=== PATIENT | female | born 1950 | race Caucasian/White ===

== ENCOUNTER 2019-10-26 17:21 | Inpatient (IN) ==
[2019-10-26 18:09] LABS: Basophils # (Auto) 0.05 K/mcL (0.00-0.30); Basophils % (Auto) 0.4 % (0.0-2.0); Eosinophils # (Auto) 0.06 K/mcL (0.00-0.70); Eosinophils % (Auto) 0.4 % (0.0-7.0); Granulocytes % (Auto) 77.3 % (38.0-78.0); Hematocrit 44.2 % (34.1-44.9); Hemoglobin 14.7 g/dL (11.2-15.7); Lymphocytes # (Auto) 1.96 K/mcL (1.50-4.80); Lymphocytes % (Auto) 14.1 % (15.5-49.0); Mean Cell Volume 81.9 fL (80.0-100.0); Mean Corpuscular HGB Conc 33.3 g/dL (31.0-36.0); Mean Platelet Volume 10.5 fL (7.4-10.4); Monocytes # (Auto) 1.09 K/mcL (0.10-0.90); Monocytes % (Auto) 7.8 % (1.0-12.0); Platelet Count 346 K/mcL (140-440); Red Cell Distribution Width 13.3 % (11.5-14.5); WBC 13.9 K/mcL (4.50-11.00)
--- NOTE | 2019-10-26 18:13 | XRay Report ---
INDICATION: SOB, weakness TECHNIQUE: AP portable semiupright chest x-ray COMPARISON: Chest x-rays dated 05/21/2019, 09/11/2018, 03/29/2018 FINDINGS: There is cardiomegaly. Pulmonary vascularity is prominent with upper lobe redistribution. Peribronchial thickening. There is bilateral, bibasilar infiltrates. The combination of findings is consistent with cardiomegaly and congestive heart failure. Bibasilar pneumonia is possible and clinical correlation is necessary. There are probable bilateral pleural effusions, right larger than left. IMPRESSION: 1. Cardiomegaly and probable congestive heart failure 2. Findings are new since 05/21/2019 Interpreted and Authenticated by: Farhat Dominguez 10/26/19
--- NOTE | 2019-10-26 18:31 | Emergency Department Note ---
Weakness HPI General Chief complaint: Weakness Stated complaint: weakness x1 week Time Seen by Provider: 10/26/19 18:04 Source: patient Mode of arrival: wheelchair Limitations: no limitations History of Present Illness HPI Narrative: This 69-year-old female comes in accompanied by her daughter. She has had about a week of worsening weakness as well as several weeks of some increasing weakness, upper respiratory symptoms including congestion in her nose that dropped into her chest. She took erythromycin she got from [facility] on 2 separate occasions but it seemed to exacerbate her joint and body aches, i.e., exacerbate fibromyalgia. She is felt weak in her legs this past week. No specific side. She is also had back discomforts. She does not normally use oxygen at home. She does have inhalers but has not been specifically advised that she has COPD that she recalls. She continues to smoke a pack per day. Reportedly has a lump or nodule that has not been followed up on or worked on, identified sometime in August. She is not been taking any diabetic medications because they all seem to give her side effects and exacerbate her pains. She does take chronic pain medications in the form of h ydrocodone 5 mg tablets. Related Data Home Medications Medication Instructions Recorded Confirmed aspirin 81 mg tablet,delayed 81 mg PO QDAY 12/07/18 10/26/19 release B Complex-Vitamin B12 1 tab PO QAM 10/26/19 10/26/19 Vitamin B-6 1 tab PO QAM 10/26/19 10/26/19 docusate sodium 100 mg PO QDAY PRN 10/26/19 10/26/19 hydrocodone-acetaminophen 1 tab PO QID 10/26/19 10/26/19 Previous Rx's Medication Instructions Recorded albuterol sulfate 90 mcg/actuation 2 puff INHALATION Q4H #36 g 10/22/19 aerosol inhaler Allergies Allergy/AdvReac Type Severity Reaction Status Date / Time cefixime [From Suprax] Allergy Unknown Unknown Verified 08/01/19 14:29 cefuroxime [From Ceftin] Allergy Unknown Unknown Verified 08/01/19 14:29 cephalexin [From Keflex] Allergy Unknown Unknown Verified 08/01/19 14:29 clarithromycin [From Biaxin] Allergy Unknown Unknown Verified 08/01/19 14:29 clindamycin [From Cleocin] Allergy Unknown Unknown Verified 08/01/19 14:29 doxycycline Allergy Unknown h/a, gi Verified 08/01/19 14:29 upset, itching levofloxacin [From Levaquin] Allergy Unknown stomach Verified 08/01/19 14:29 pain, aches meperidine [From Demerol] Allergy Unknown Unknown Verified 08/01/19 14:29 morphine Allergy Unknown Unknown Verified 08/01/19 14:29 rofecoxib [From Vioxx] Allergy Unknown Unknown Verified 08/01/19 14:29 Tizanidine Allergy Unknown tightness Verified 08/01/19 14:29 in chest and difficulty breathing glimiperide Allergy Unknown fatigue, Uncoded 08/01/19 14:29 sob, weak omegaq plus Allergy Unknown severe Uncoded 08/01/19 14:29 knee pain [id number] Allergy Unknown Unknown Uncoded 08/01/19 14:29 glyxambi AdvReac Severe bodyaches, Uncoded 08/05/19 08:13 kidney pain Review of Systems ROS ROS Narrative: Narrative: Denies headache or blurry vision or lightheadedness. No chest pain No nausea or vomiting or diarrhea or constipation or blood in her stools. No leg swelling. [facility] Narrative Patient History Narrative: Narrative: Denies CVA, TIA, MA. Medical/Surgical/Family History All Active Problems (Updated 10/27/19 @ 00:07 by Andres Johnson MD) Noncompliance with diabetes treatment (Acute) Weakness (Acute) Hypoxia (Acute) Congestive heart failure (CHF) (Acute) Cardiomegaly (Acute) Lung mass (Acute) Back pain (Chronic) COPD with chronic bronchitis (Chronic) History of removal of neck cyst (Chronic) Depression (Chronic) Grief reaction (Chronic) Allergic rhinitis (Chronic) DJD (degenerative joint disease) (Chronic) Back muscle spasm (Chronic) Arthralgia (Chronic) Fibromyalgia (Chronic) Smoker (Chronic) Callus of foot (Chronic) Asthma (Chronic) Anxiety (Chronic) Varicose veins of lower extremity (Chronic) Thyroid nodule (Chronic) Shoulder impingement syndrome (Chronic) Knee joint pain (Chronic) Reflux esophagitis (Chronic) Sciatica (Chronic) Encounter for medication monitoring (Chronic) DDD (degenerative disc disease) (Chronic) Bronchitis (Chronic) Fatigue (Chronic) Anemia (Chronic) Sinusitis (Chronic) Otitis externa (Chronic) Ventral hernia (Chronic) Fistula, gallbladder (Chronic) Otitis media (Chronic) Nausea (Chronic) Diabetes mellitus type II, uncontrolled (Chronic ~06/2009) COPD (chronic obstructive pulmonary disease) (Chronic) Encounter for long-term (current) use of medications (Chronic) Seasonal allergies (Chronic) Abnormal findings on diagnostic imaging of abdomen (Chronic) Urinary frequency (Chronic) Medical History (Updated 10/27/19 @ 00:07 by Andres Johnson MD) Abdominal aortic aneurysm (AAA) (Chronic) Abnormal findings on diagnostic imaging of abdomen (Chronic) Acute pain of both ears (Inactive) Allergic rhinitis (Chronic) Anemia (Chronic) Anxiety (Chronic) Arthralgia (Chronic) Asthma (Chronic) Back muscle spasm (Chronic) Bronchitis (Chronic) Callus of foot (Chronic) COPD (chronic obstructive pulmonary disease) (Chronic) COPD with acute bronchitis (Resolved) DDD (degenerative disc disease) (Chronic) Depression (Chronic) Diabetes mellitus type II, uncontrolled (Chronic ~06/2009) pt counseled needs treatment. vinegar does not work for diabetes and insulin she can not be allergic to. she can be allergic to the form of insulin ie pork, beef etc but there is also human insulin. We can find one that works and symptoms of malaise can be coincidental and not as result. sugar free clear liquids till morning. DJD (degenerative joint disease) (Chronic) Encounter for long-term (current) use of medications (Chronic) Encounter for medication monitoring (Chronic) Fatigue (Chronic) Fibromyalgia (Chronic) chronic and on narcotic pain meds. add gabpentin for fibromyalgia and neuropathy Fistula, gallbladder (Chronic) Grief reaction (Chronic) Knee joint pain (Chronic) >3 months, bilateral Lumbar back pain (Chronic) Nausea (Chronic) Otitis externa (Chronic) Otitis media (Chronic) Peripheral cyanosis (Inactive) Reflux esophagitis (Chronic) Sciatica (Chronic) Seasonal allergies (Chronic) Shoulder impingement syndrome (Chronic) Sinusitis (Chronic) Smoker (Chronic) Thrombophlebitis (Inactive) Thyroid nodule (Chronic) Urinary frequency (Chronic) UTI (urinary tract infection) (Resolved) Varicose veins of lower extremity (Chronic) Ventral hernia (Chronic) Surgical History H/O: hysterectomy (Acute) History of removal of neck cyst (Chronic) branchial cyst anterior neck removed at age 13 Family History Brain cancer Sister Thyroid cancer Sister Social History Smoking Status: Current every day smoker (1 pack/day) Alcohol Intake Frequency: does not drink Substance Use: does not use Exam Narrative Narrative: Narrative: General Limitations: no limitations General appearance: alert, in no apparent distress, nontoxic and obese Head Head: atraumatic and normocephalic Eye Eye: Present normal appearance, PERRL and EOMI ENT ENT: Present normal oropharynx and mucous membranes dry Neck Neck: Present trachea midline; Absent lymphadenopathy and thyromegaly Chest Chest: Present symmetric chest wall rise Respiratory Respiratory: Present other (Is requiring several liters of oxygen and does not normally use oxygen.); Absent normal lung sounds bilaterally (Occasional wheeze or pop. In the left base there are some fine crackles.), respiratory distress, rales/crackles, wheezes, stridor, accessory muscle use and prolonged expiratory phase Cardiovascular Cardiovascular: Present regular rate and normal rhythm; Absent systolic murmur and diastolic murmur Adbominal Abdominal: Present soft; Absent distention, tenderness, guarding, rebound, rig idity, organomegaly and mass Extremities Extremities: Absent pedal edema, pretibial edema, calf tenderness and cyanosis Back Back: Absent CVA tenderness (R), CVA tenderness (L) and spinous process tenderness Neurological Neurological: Present alert and oriented X3 Psychiatric Psychiatric: Present normal affect, flat affect, serious, polite and pleasant; Absent depressed, agitated, anxious and poor eye contact Skin Skin: Present warm and dry; Absent cyanosis and pallor Course Vital Signs Vital signs: Vital Signs Temperature 97.3 F 10/26/19 17:23 Pulse Rate 115 H 10/26/19 17:23 Respiratory Rate 14 10/26/19 17:23 Blood Pressure 142/78 10/26/19 17:23 Pulse Oximetry (%) 83 L 10/26/19 17:23 Temperature 97.8 F 10/27/19 10:01 Pulse Rate 65 10/27/19 10:01 Respiratory Rate 18 10/27/19 10:01 Blood Pressure 109/63 10/27/19 10:01 Pulse Oximetry (%) 93 10/27/19 10:01 [facility] MDM Narrative Medical decision making narrative: 5:20 PM approximately - interviewed and examined. Generalized weakness, some prolonged coughing, with smoking background, some hypoxia and tachycardia today in triage. We will do multiple labs, EKG, chest x-ray. 6:42 PM - blood sugar 485. Regular insulin 5 units ordered. 7:57 PM - labs include WBC of 13.9. Lactic acid 1.4 Sodium low at 124. Glucose 485. Procalcitonin 0.16 Chest x-ray demonstrates: "Cardiomegaly and probably CHF which are new since 05/21/2019" 8:00 PM - with above chest x-ray results, 20 mg of furosemide ordered. Her hyponatremia is probably pseudohyponatremia due to her blood sugar being over 450 so I believe this to be completely safe at this point. Case was later discussed with Dr. Marin Johnson, hospitalist, with agreement for patient to be admitted to treat CHF and hypoxia. Lab Data Result diagrams: 10/27/19 04:40 10/27/19 04:41 Labs: Lab Results 10/26/19 10/26/19 10/26/19 Range/Units 17:52 17:52 17:52 WBC 13.9 H (4.50-11.00) K/mcL RBC 5.40 H (3.59-5.38) M/mcL Hgb 14.7 (11.2-15.7) g/dL Hct 44.2 (34.1-44.9) % MCV 81.9 (80.0-100.0) fL MCH 27.2 (26.0-34.0) pg MCHC 33.3 (31.0-36.0) g/dL RDW 13.3 (11.5-14.5) % Plt Count 346 (140-440) K/mcL MPV 10.5 H (7.4-10.4) fL Gran % 77.3 (38.0-78.0) % Lymph % (Auto) 14.1 L (15.5-49.0) % [place] % (Auto) 7.8 (1.0-12.0) % Eos % (Auto) 0.4 (0.0-7.0) % Baso % (Auto) 0.4 (0.0-2.0) % Gran # 10.73 H (1.80-8.00) K/mcL Lymph # (Auto) 1.96 (1.50-4.80) K/mcL [place] # (Auto) 1.09 H (0.10-0.90) K/mcL Eos # (Auto) 0.06 (0.00-0.70) K/mcL Baso # (Auto) 0.05 (0.00-0.30) K/mcL VBG Lactic Acid (0.5-2.0) mmol/L Sodium 124 L (133-145) mmol/L Potassium 4.7 (3.3-5.1) mmol/L Chloride 84 L (96-108) mmol/L Carbon Dioxide 29 (22-30) mmol/L Anion Gap 11.0 (8-16) BUN 13 (8-23) mg/dl Creatinine 0.6 (0.6-1.1) mg/dl GFR Calculation 92 Glucose 485 H* (70-105) mg/dL Hemoglobin A1c (4.0-6.0) % HGB Estim Average Glucose mg/dL Calcium 9.2 (8.6-10.4) mg/dl Phosphorus (2.7-4.5) mg/dL Magnesium (1.6-2.5) mg/dL Total Bilirubin 0.4 (0.0-1.0) mg/dL AST 29 (0-37) U/l ALT 27 (0-40) U/l Alkaline Phosphatase 129 H (39-117) U/L Troponin T (0-0.03) ng/ml Total Protein 6.5 (5.9-8.4) gm/dL Albumin 3.2 (3.2-5.2) gm/dL Globulin 3.3 (2.2-3.7) gm/dL Albumin/Globulin Ratio 1.0 (1.0-2.3) Procalcitonin 0.16 (<0.10) ng/mL TSH (0.27-5.01) uIU/ml 10/26/19 10/26/19 10/26/19 Range/Units 17:52 18:42 22:02 WBC (4.50-11.00) K/mcL RBC (3.59-5.38) M/mcL Hgb (11.2-15.7) g/dL Hct (34.1-44.9) % MCV (80.0-100.0) fL MCH (26.0-34.0) pg MCHC (31.0-36.0) g/dL RDW (11.5-14.5) % Plt Count (140-440) K/mcL MPV (7.4-10.4) fL Gran % (38.0-78.0) % Lymph % (Auto) (15.5-49.0) % [place] % (Auto) (1.0-12.0) % Eos % (Auto) (0.0-7.0) % Baso % (Auto) (0.0-2.0) % Gran # (1.80-8.00) K/mcL Lymph # (Auto) (1.50-4.80) K/mcL [place] # (Auto) (0.10-0.90) K/mcL Eos # (Auto) (0.00-0.70) K/mcL Baso # (Auto) (0.00-0.30) K/mcL VBG Lactic Acid 1.4 (0.5-2.0) mmol/L Sodium (133-145) mmol/L Potassium (3.3-5.1) mmol/L Chloride (96-108) mmol/L Carbon Dioxide (22-30) mmol/L Anion Gap (8-16) BUN (8-23) mg/dl Creatinine (0.6-1.1) mg/dl GFR Calculation Glucose (70-105) mg/dL Hemoglobin A1c (4.0-6.0) % HGB Estim Average Glucose mg/dL Calcium (8.6-10.4) mg/dl Phosphorus (2.7-4.5) mg/dL Magnesium (1.6-2.5) mg/dL Total Bilirubin (0.0-1.0) mg/dL AST (0-37) U/l ALT (0-40) U/l Alkaline Phosphatase (39-117) U/L Troponin T < 0.01 < 0.01 (0-0.03) ng/ml Total Protein (5.9-8.4) gm/dL Albumin (3.2-5.2) gm/dL Globulin (2.2-3.7) gm/dL Albumin/Globulin Ratio (1.0-2.3) Procalcitonin (<0.10) ng/mL TSH (0.27-5.01) uIU/ml 10/26/19 Range/Units 22:02 WBC (4.50-11.00) K/mcL RBC (3.59-5.38) M/mcL Hgb (11.2-15.7) g/dL Hct (34.1-44.9) % MCV (80.0-100.0) fL MCH (26.0-34.0) pg MCHC (31.0-36.0) g/dL RDW (11.5-14.5) % Plt Count (140-440) K/mcL MPV (7.4-10.4) fL Gran % (38.0-78.0) % Lymph % (Auto) (15.5-49.0) % [place] % (Auto) (1.0-12.0) % Eos % (Auto) (0.0-7.0) % Baso % (Auto) (0.0-2.0) % Gran # (1.80-8.00) K/mcL Lymph # (Auto) (1.50-4.80) K/mcL [place] # (Auto) (0.10-0.90) K/mcL Eos # (Auto) (0.00-0.70) K/mcL Baso # (Auto) (0.00-0.30) K/mcL VBG Lactic Acid (0.5-2.0) mmol/L Sodium 124 L (133-145) mmol/L Potassium 4.2 (3.3-5.1) mmol/L Chloride 83 L (96-108) mmol/L Carbon Dioxide 28 (22-30) mmol/L Anion Gap 13.0 (8-16) BUN 11 (8-23) mg/dl Creatinine 0.6 (0.6-1.1) mg/dl GFR Calculation 92 Glucose 300 H (70-105) mg/dL Hemoglobin A1c 13.4 H (4.0-6.0) % HGB Estim Average Glucose 338 mg/dL Calcium 9.5 (8.6-10.4) mg/dl Phosphorus 3.4 (2.7-4.5) mg/dL Magnesium 1.5 L (1.6-2.5) mg/dL Total Bilirubin (0.0-1.0) mg/dL AST (0-37) U/l ALT (0-40) U/l Alkaline Phosphatase (39-117) U/L Troponin T (0-0.03) ng/ml Total Protein (5.9-8.4) gm/dL Albumin (3.2-5.2) gm/dL Globulin (2.2-3.7) gm/dL Albumin/Globulin Ratio (1.0-2.3) Procalcitonin (<0.10) ng/mL TSH 0.70 (0.27-5.01) uIU/ml Discharge Plan Patient/Caregiver Discharge Instructions Pt seen by [facility] ROOM OPERATOR/PA only: No Clinical Impression: Weakness, Hypoxia, Cardiomegaly Congestive heart failure (CHF) Qualifiers: Heart failure type: unspecified Heart failure chronicity: acute Qualified Code(s): I50.9 - Heart failure, unspecified Patient Disposition: Xfer As Inpt ([facility]) Discharge Date/Time: 10/26/19 22:14 Discharge Location: [facility] Inpatient
[2019-10-26 18:38] LABS: ALT/SGPT 27 U/l (0-40); AST/SGOT 29 U/l (0-37); Albumin 3.2 gm/dL (3.2-5.2); Alkaline Phosphatase 129 U/L (39-117); Bilirubin,Total 0.4 mg/dL (0.0-1.0); Blood Urea Nitrogen 13 mg/dl (8-23); Calcium 9.2 mg/dl (8.6-10.4); Carbon Dioxide 29 mmol/L (22-30); Globulin 3.3 gm/dL (2.2-3.7); Glomerular Filtration Rate 92
[2019-10-26 18:41] LABS: Chloride 84 mmol/L (96-108); Glucose 485 mg/dL (70-105)
[2019-10-26] MEDS ORDERED: INSULIN REGULAR, HUMAN 1 UNIT/0.01 ML UNIT IV ONE (18:43)
[2019-10-26] MEDS ORDERED: FUROSEMIDE 20 MG/2 ML VIAL IV ONE (20:01)
[2019-10-26] MEDS: INSULIN GLARGINE, HUMAN 1 UNIT/0.01 ML SQ SCH (23:25)
[2019-10-26] MEDS ORDERED: DEXTROSE 50% 50 ML VIAL IV PRN (23:31)
[2019-10-26] MEDS ORDERED: DEXTROSE 31 GM ORAL.SUSP PO PRN (23:31)
[2019-10-26] MEDS ORDERED: LACTULOSE 20 GM/30 ML ORAL.SOL PO PRN (23:31)
[2019-10-26] MEDS ORDERED: ENOXAPARIN 40 MG/0.4 ML SYRINGE SQ SCH (23:31)
[2019-10-26] MEDS ORDERED: ACETAMINOPHEN 325 MG TABLET PO PRN (23:31)
[2019-10-26] MEDS ORDERED: SENNOSIDES 1 TABLET PO PRN (23:31)
[2019-10-26] MEDS ORDERED: ONDANSETRON 4 MG/2 ML VIAL IV PRN (23:31)
[2019-10-26] MEDS ORDERED: INSULIN LISPRO 1 UNIT/0.01 ML UNIT SQ ONE (23:56)
[2019-10-27] MEDS: 0.9 % SODIUM CHLORIDE 10 ML SYRINGE IV SCH ×9 (00:03→22:19)
[2019-10-27] MEDS ORDERED: DIGOXIN 500 MCG/2 ML AMPUL IV ONE (00:03)
[2019-10-27] MEDS ORDERED: ENOXAPARIN 40 MG/0.4 ML SYRINGE ONE (00:03)
--- NOTE | 2019-10-27 00:07 | Internal Med History&Physical ---
HPI History of Present Illness Patient information: Note initiated : 10/26/19 at 11:45 pm Service Date, if different from initiated Date: [] Patient: Geraldine Sanches 69 y/o F admitted on 10/26/19 for weakness x1 week. Chief Complaint: swollen legs and difficulty breathing History of present illness: Ms. Sanches is a 69 year old F noncompliant has had diabetes not treated and A1c 11. in april and 14 in past. BS running 485 today. She has reported side effects with pills she has tried. She says the insulin she took made her feel worse and worse over days. She sees Negrito Villa q 2-3 months but pt has declined diabetic medication and declined [facility]. She is taking some vinegar product and says one time it lowered her blood sugar to 180. Pt reports never having heart failure before but last night had marked increase in leg swelling and subsequent difficulty breathing. Came to EMD. No fevers no chills no cough no sick contacts. no anosmia or loss of taste. She and nasal congestion recently treated with erythromycin. Now she chest congestion. Xray show florrid CHF with bilat pleural effusions. Pt smokes 1ppd. Constitutional Constitutional: Present fatigue and weakness; Absent chills, excessive sweating, lethargy, weight gain and weight loss Cardiovascular Cardiovascular: Present leg edema and pedal edema; Absent chest pain, irregular heart rhythm and syncope Respiratory Respiratory: Present dyspnea on exertion and chest congestion; Absent cough and hemoptysis Gastrointestinal Gastrointestinal: Absent abdominal pain, constipation, diarrhea, nausea and vomiting Genitourinary Genitourinary: Present urinary frequency and urinary urgency Musculoskeletal Musculoskeletal: Present arthralgias, back pain, joint swelling, myalgias, neck pain and stiffness Additional comments: has fibromyalgia Neurological Neurological: Absent abnormal speech, confusion, convulsions, focal weakness and lack of coordination Endocrine Endocrine: Present fatigue, polydipsia and polyuria PFSH PFSH All Active Problems (Updated 10/27/19 @ 00:07 by Andres Johnson MD) Noncompliance with diabetes treatment (Acute) Weakness (Acute) Hypoxia (Acute) Congestive heart failure (CHF) (Acute) Cardiomegaly (Acute) Lung mass (Acute) Back pain (Chronic) COPD with chronic bronchitis (Chronic) History of removal of neck cyst (Chronic) Depression (Chronic) Grief reaction (Chronic) Allergic rhinitis (Chronic) DJD (degenerative joint disease) (Chronic) Back muscle spasm (Chronic) Arthralgia (Chronic) Fibromyalgia (Chronic) Smoker (Chronic) Callus of foot (Chronic) Asthma (Chronic) Anxiety (Chronic) Varicose veins of lower extremity (Chronic) Thyroid nodule (Chronic) Shoulder impingement syndrome (Chronic) Knee joint pain (Chronic) Reflux esophagitis (Chronic) Sciatica (Chronic) Encounter for medication monitoring (Chronic) DDD (degenerative disc disease) (Chronic) Bronchitis (Chronic) Fatigue (Chronic) Anemia (Chronic) Sinusitis (Chronic) Otitis externa (Chronic) Ventral hernia (Chronic) Fistula, gallbladder (Chronic) Otitis media (Chronic) Nausea (Chronic) Diabetes mellitus type II, uncontrolled (Chronic ~06/2009) COPD (chronic obstructive pulmonary disease) (Chronic) Encounter for long-term (current) use of medications (Chronic) Seasonal allergies (Chronic) Abnormal findings on diagnostic imaging of abdomen (Chronic) Urinary frequency (Chronic) Medical History (Updated 10/27/19 @ 00:07 by Andres Johnson MD) Abdominal aortic aneurysm (AAA) (Chronic) Abnormal findings on diagnostic imaging of abdomen (Chronic) Acute pain of both ears (Inactive) Allergic rhinitis (Chronic) Anemia (Chronic) Anxiety (Chronic) Arthralgia (Chronic) Asthma (Chronic) Back muscle spasm (Chronic) Bronchitis (Chronic) Callus of foot (Chronic) COPD (chronic obstructive pulmonary disease) (Chronic) COPD with acute bronchitis (Resolved) DDD (degenerative disc disease) (Chronic) Depression (Chronic) Diabetes mellitus type II, uncontrolled (Chronic ~06/2009) pt counseled needs treatment. vinegar does not work for diabetes and insulin she can not be allergic to. she can be allergic to the form of insulin ie pork, beef etc but there is also human insulin. We can find one that works and symptoms of malaise can be coincidental and not as result. sugar free clear liquids till morning. DJD (degenerative joint disease) (Chronic) Encounter for long-term (current) use of medications (Chronic) Encounter for medication monitoring (Chronic) Fatigue (Chronic) Fibromyalgia (Chronic) chronic and on narcotic pain meds. add gabpentin for fibromyalgia and neuropathy Fistula, gallbladder (Chronic) Grief reaction (Chronic) Knee joint pain (Chronic) >3 months, bilateral Lumbar back pain (Chronic) Nausea (Chronic) Otitis externa (Chronic) Otitis media (Chronic) Peripheral cyanosis (Inactive) Reflux esophagitis (Chronic) Sciatica (Chronic) Seasonal allergies (Chronic) Shoulder impingement syndrome (Chronic) Sinusitis (Chronic) Smoker (Chronic) Thrombophlebitis (Inactive) Thyroid nodule (Chronic) Urinary frequency (Chronic) UTI (urinary tract infection) (Resolved) Varicose veins of lower extremity (Chronic) Ventral hernia (Chronic) Surgical History H/O: hysterectomy (Acute) History of removal of neck cyst (Chronic) branchial cyst anterior neck removed at age 13 Family History Sister Thyroid cancer Brain cancer Social History (Updated 08/05/19 @ 08:13 by MILES Davies) household members: alone lives independently: Yes marital status: occupational status: retired occupation: [employer] August 2015 other: Apr 11 of her son smoking status: Current every day smoker (1 pack/day) alcohol intake frequency: does not drink substance use type: does not use MEDS/ALLERGIES Home Medications and Allergies Home Medications Medication Instructions Recorded Confirmed Type aspirin 81 mg tablet,delayed 81 mg PO QDAY 12/07/18 10/26/19 History release albuterol sulfate 90 mcg/actuation 2 puff INHALATION Q4H #36 g 10/22/19 10/26/19 Rx aerosol inhaler B Complex-Vitamin B12 1 tab PO QAM 10/26/19 10/26/19 History Vitamin B-6 1 tab PO QAM 10/26/19 10/26/19 History docusate sodium 100 mg PO QDAY PRN 10/26/19 10/26/19 History hydrocodone-acetaminophen 1 tab PO QID 10/26/19 10/26/19 History Allergies Allergy/AdvReac Type Severity Reaction Status Date / Time cefixime [From Suprax] Allergy Unknown Unknown Verified 08/01/19 14:29 cefuroxime [From Ceftin] Allergy Unknown Unknown Verified 08/01/19 14:29 cephalexin [From Keflex] Allergy Unknown Unknown Verified 08/01/19 14:29 clarithromycin [From Biaxin] Allergy Unknown Unknown Verified 08/01/19 14:29 clindamycin [From Cleocin] Allergy Unknown Unknown Verified 08/01/19 14:29 doxycycline Allergy Unknown h/a, gi Verified 08/01/19 14:29 upset, itching levofloxacin [From Levaquin] Allergy Unknown stomach Verified 08/01/19 14:29 pain, aches meperidine [From Demerol] Allergy Unknown Unknown Verified 08/01/19 14:29 morphine Allergy Unknown Unknown Verified 08/01/19 14:29 rofecoxib [From Vioxx] Allergy Unknown Unknown Verified 08/01/19 14:29 Tizanidine Allergy Unknown tightness Verified 08/01/19 14:29 in chest and difficulty breathing glimiperide Allergy Unknown fatigue, Uncoded 08/01/19 14:29 sob, weak omegaq plus Allergy Unknown severe Uncoded 08/01/19 14:29 knee pain pce 333 Allergy Unknown Unknown Uncoded 08/01/19 14:29 glyxambi AdvReac Severe bodyaches, Uncoded 08/05/19 08:13 kidney pain EXAM Constitutional Vitals: Temp Pulse Resp BP Pulse Ox 97.3 F 97 H 20 108/70 90 10/26/19 17:23 10/26/19 23:34 10/26/19 23:34 10/26/19 23:02 10/26/19 23:34 DATA Data Completed and Pending Labs on day of discharge: Labs from last 24 hours 10/26/19 10/26/19 10/26/19 22:02 22:02 21:23 WBC RBC Hgb Hct MCV MCH MCHC RDW Plt Count MPV Gran % Lymph % (Auto) Jenkins % (Auto) Eos % (Auto) Baso % (Auto) Gran # Lymph # (Auto) [place] # (Auto) Eos # (Auto) Baso # (Auto) VBG Lactic Acid Sodium Pending Potassium Pending Chloride Pending Carbon Dioxide Pending Anion Gap Pending BUN Pending Creatinine Pending GFR Calculation Pending Glucose Pending Hemoglobin A1c Pending Estim Average Glucose Pending Calcium Pending Phosphorus Pending Magnesium Pending Total Bilirubin AST ALT Alkaline Phosphatase Troponin T < 0.01 Total Protein Albumin Globulin Albumin/Globulin Ratio Procalcitonin TSH Pending SARS-CoV-2 (PCR) Pending 10/26/19 10/26/19 10/26/19 18:42 17:52 17:52 WBC RBC Hgb Hct MCV MCH MCHC RDW Plt Count MPV Gran % Lymph % (Auto) [place] % (Auto) Eos % (Auto) Baso % (Auto) Gran # Lymph # (Auto) Jenkins # (Auto) Eos # (Auto) Baso # (Auto) VBG Lactic Acid 1.4 Sodium Potassium Chloride Carbon Dioxide Anion Gap BUN Creatinine GFR Calculation Glucose Hemoglobin A1c Estim Average Glucose Calcium Phosphorus Magnesium Total Bilirubin AST ALT Alkaline Phosphatase Troponin T < 0.01 Total Protein Albumin Globulin Albumin/Globulin Ratio Procalcitonin 0.16 TSH SARS-CoV-2 (PCR) 10/26/19 10/26/19 17:52 17:52 WBC 13.9 H RBC 5.40 H Hgb 14.7 Hct 44.2 MCV 81.9 MCH 27.2 MCHC 33.3 RDW 13.3 Plt Count 346 MPV 10.5 H Gran % 77.3 Lymph % (Auto) 14.1 L Jenkins % (Auto) 7.8 Eos % (Auto) 0.4 Baso % (Auto) 0.4 Gran # 10.73 H Lymph # (Auto) 1.96 Jenkins # (Auto) 1.09 H Eos # (Auto) 0.06 Baso # (Auto) 0.05 VBG Lactic Acid Sodium 124 L Potassium 4.7 Chloride 84 L Carbon Dioxide 29 Anion Gap 11.0 BUN 13 Creatinine 0.6 GFR Calculation 92 Glucose 485 H* Hemoglobin A1c Estim Average Glucose Calcium 9.2 Phosphorus Magnesium Total Bilirubin 0.4 AST 29 ALT 27 Alkaline Phosphatase 129 H Troponin T Total Protein 6.5 Albumin 3.2 Globulin 3.3 Albumin/Globulin Ratio 1.0 Procalcitonin TSH SARS-CoV-2 (PCR) A/P Assessment and plan (1) Congestive heart failure (CHF): Status: Acute Comment: new onset and likely due to severe hyperglycemia and concern for possible ischemia though her troponin normal. She has volume overload as opposed to dehydration despite severe hyperglycemia and history of glucosuria lovenox for dvt prophylaxis. Qualifiers: Heart failure chronicity: acute Heart failure type: unspecified Qualified Code(s): I50.9 - Heart failure, unspecified (2) Fibromyalgia: Status: Chronic Comment: chronic and on narcotic pain meds. add gabpentin for fibromyalgia and neuropathy (3) COPD with chronic bronchitis: Status: Chronic Comment: unchanged. lung exam no sign wheezing (4) Diabetes mellitus type II, uncontrolled: Status: Chronic Comment: pt counseled needs treatment. vinegar does not work for diabetes and insulin she can not be allergic to. she can be allergic to the form of insulin ie pork, beef etc but there is also human insulin. We can find one that works and symptoms of malaise can be coincidental and not as result. sugar free clear liquids till morning. Qualifiers: Glycemic state: with hyperglycemia Qualified Code(s): E11.65 - Type 2 diabetes mellitus with hyperglycemia (5) Noncompliance with diabetes treatment: Status: Acute Comment: pt at high risk of morbidity and due to untreated dm. recheck A1C. Pt needs to find a provider she will listen to and get treatment from. May need psychiatric treatment and counseling as well. 09/2017 was last reasonable A1C at 8.4 since 03/24/2018 has been completely out of control 11-14.9 Time Spent With Patient Time: Total time spent is greater than 50% in coordination of care (as documented) at patient's floor/unit and/or counseling patient: 60
[2019-10-27] MEDS ORDERED: LORazepam 1 MG TABLET PO PRN (00:12)
[2019-10-27 00:33] LABS: Blood Urea Nitrogen 11 mg/dl (8-23); Calcium 9.5 mg/dl (8.6-10.4); Carbon Dioxide 28 mmol/L (22-30); Glomerular Filtration Rate 92; Glucose 300 mg/dL (70-105); Phosphorous 3.4 mg/dL (2.7-4.5)
[2019-10-27 00:41] LABS: Chloride 83 mmol/L (96-108); Estimated Average Glucose(eAG) 338 mg/dL; Hemoglobin A1C 13.4 % HGB (4.0-6.0)
[2019-10-27] MEDS: ALBUTEROL SULFATE 200 PUFF INHALER INH SCH ×6 (00:43→22:18)
[2019-10-27 03:08] LABS: Appearance,Urine HAZY; Bacteria,Urine MANY /hpf (0); Bilirubin,Urine NEG (NEG); Color,Urine YELLOW; Culture Indicated,Urine YES; Glucose,Urine (UA) 50 mg/dL (NEG); Ketones,Urine NEG (NEG); Leukocyte Esterase,Urine 500 /uL (NEG); Mucus,Urine FEW /hpf (0); Nitrate,Urine NEG (NEG); Protein,Urine NEG (NEG); Specific Gravity,Urine 1.006 (1.000-1.035); Urine Blood NEG mg/dL (<0.03); Urine RBC 0 /hpf (0-1); Urine Squamous Epithelial Cell 1 /hpf (0-4); Urine WBC 112 /hpf (0-4); Urobilinogen,Urine NEG (NEG)
[2019-10-27] MEDS ORDERED: INSULIN LISPRO 1 UNIT/0.01 ML UNIT SQ ONE ×2 (04:21→07:36)
[2019-10-27 06:50] LABS: Basophils # (Auto) 0.06 K/mcL (0.00-0.30); Basophils % (Auto) 0.4 % (0.0-2.0); Eosinophils # (Auto) 0.16 K/mcL (0.00-0.70); Eosinophils % (Auto) 1.1 % (0.0-7.0); Granulocytes % (Auto) 77.7 % (38.0-78.0); Hematocrit 42.2 % (34.1-44.9); Hemoglobin 13.8 g/dL (11.2-15.7); Lymphocytes % (Auto) 12.5 % (15.5-49.0); Mean Cell Volume 82.7 fL (80.0-100.0); Mean Corpuscular HGB Conc 32.7 g/dL (31.0-36.0); Mean Platelet Volume 10.5 fL (7.4-10.4); Monocytes # (Auto) 1.19 K/mcL (0.10-0.90); Monocytes % (Auto) 8.3 % (1.0-12.0); Platelet Count 328 K/mcL (140-440); Red Cell Distribution Width 13.3 % (11.5-14.5); WBC 14.4 K/mcL (4.50-11.00)
[2019-10-27 07:16] LABS: Blood Urea Nitrogen 10 mg/dl (8-23); Calcium 8.8 mg/dl (8.6-10.4); Carbon Dioxide 30 mmol/L (22-30); Glomerular Filtration Rate 98; Glucose 247 mg/dL (70-105)
[2019-10-27 07:22] LABS: HDL Cholesterol 41 mg/dl (>40); LDL Cholesterol,Calculated 41 mg/dl (SEE CHART); Non-HDL Cholesterol 55 (LDL TARGET+30); Triglycerides 75 mg/dl (<150)
[2019-10-27 07:24] LABS: Chloride 87 mmol/L (96-108)
[2019-10-27] MEDS: INSULIN LISPRO 1 UNIT/0.01 ML UNIT SQ SCH ×3 (07:32→17:18)
[2019-10-27] MEDS ORDERED: FUROSEMIDE 40 MG/4 ML VIAL IV ONE (07:41)
[2019-10-27] MEDS: FUROSEMIDE 40 MG/4 ML VIAL IV SCH ×3 (07:43→22:16)
[2019-10-27] MEDS ORDERED: MAGNESIUM SULFATE 8.12 MEQ/2 ML VIAL IV ONE (08:54)
[2019-10-27] MEDS: INSULIN GLARGINE, HUMAN 1 UNIT/0.01 ML SQ SCH (09:01)
[2019-10-27] MEDS: HYDROcodone/APAP 5/325MG TABLET PO SCH ×4 (09:09→22:16)
[2019-10-27] MEDS: POTASSIUM CHLORIDE 20 MEQ TABLET PO SCH ×3 (09:09→17:58)
[2019-10-27] MEDS: ASPIRIN 81 MG TAB.CHEW PO SCH (09:10)
[2019-10-27] MEDS: MAGNESIUM OXIDE 400 MG TABLET PO SCH ×2 (09:11→22:16)
[2019-10-27] MEDS: PYRIDOXINE 100 MG TABLET PO SCH (09:23)
[2019-10-27] MEDS: VITAMIN B COMPLEX 1 CAPSULE PO SCH (09:23)
[2019-10-27] MEDS: DOCUSATE SODIUM 100 MG CAPSULE PO SCH ×2 (09:23→20:18)
[2019-10-27] MEDS: GABAPENTIN 100 MG CAPSULE PO SCH ×3 (09:23→22:17)
[2019-10-27] MEDS: FAMOTIDINE 20 MG TABLET PO SCH ×2 (09:24→22:16)
[2019-10-27] MEDS ORDERED: MAGNESIUM SULFATE 2 GM/50 ML BAG IV ONE (10:00)
[2019-10-27] MEDS ORDERED: NICOTINE 21 MG PATCH TOPICAL SCH (10:00)
[2019-10-27] MEDS: MOMETASONE INH SCH ×2 (10:56→22:18)
--- NOTE | 2019-10-27 11:24 | Internal Med Progress Note ---
SUBJECTIVE Subjective Patient information: Note initiated : 10/27/19 at 11:19 am Service Date, if different from initiated Date: [] Patient: Geraldine Sanches 69 y/o F admitted on 10/26/19 for weakness x1 week. Chief Complaint: leg swelling and sob noncompliant 69 yo female with fibromyalgia has had lots of nonspecific symptoms with many medications she has refused thereafter to take. She sees Dr. Villa but has not been able to be convinced to take insulin even. Blood sugars running 500 and A1c 14 for last months to 2 years. Pt came in with acute hyperglycemia without DKA or HONK coma but severe pulmonary edema and this morning was started on bipap diuresis. Last night still arguing about taking insulin but ultimately consented. this morning bs 250 then 150. Constitutional Vitals: Vital Signs Temp Pulse Resp BP Pulse Ox 97.8 F 65 18 109/63 93 10/27/19 10:01 10/27/19 10:01 10/27/19 10:01 10/27/19 10:01 10/27/19 10:01 Period Temp Pulse Resp BP Sys/Reynolds Pulse Ox Last 24 Hr 97.3 F-97.9 F 65-115 14-26 98-142/58-86 83-97 Intake and Output 10/26/19 10/27/19 10/27/19 21:59 05:59 13:59 Intake Total 360 170 Output Total 129 900 6100 Balance -725 -161 -1491 Weight 85.275 kg 82.282 kg Intake & Output: Intake & Output 10/26/19 10/27/19 10/27/19 21:59 05:59 13:59 Intake Total 360 170 Output Total 430 839 0142 Balance -725 161 -1491 Weight 85.275 kg 82.282 kg Intake: IV 50 Oral 360 120 Output: Urine Catheter Amount 1410 Void Amount 725 520 250 # of times incontinent of urine 1 1 Other: Percent of Meal Consumed 100% Nourishment/Supplement name Egg salad cup/crackers Urine Appearance Clear Clear Clear Uretheral ([place]) Clear Urine Color Bright Yellow Pale Uretheral ([place]) Pale Urine Odor Strong GEN WDWN WF in mild resp distress but tolerating the bipap CV RRR Lungs crackles and decreased breath sounds in bases ABd soft obese NT Calves 2+ edema skin warm and dry Ment alert and oriented x 3 OBJ DATA Labs CBC & Chem 7: 10/27/19 04:40 10/27/19 04:41 Labs: Abnormal Lab Results 10/27/19 10/27/19 10/27/19 04:41 04:40 01:42 WBC 14.4 H RBC MPV 10.5 H Lymph % (Auto) 12.5 L Gran # 11.15 H [place] # (Auto) 1.19 H Sodium 129 L Chloride 87 L Creatinine 0.5 L Glucose 247 H Hemoglobin A1c Magnesium Alkaline Phosphatase Urine Glucose (UA) 50 A Ur Leukocyte Esterase 500 A Urine WBC 112 H Urine Bacteria Many A 10/26/19 10/26/19 10/26/19 22:02 17:52 17:52 WBC 13.9 H RBC 5.40 H MPV 10.5 H Lymph % (Auto) 14.1 L Gran # 10.73 H [place] # (Auto) 1.09 H Sodium 124 L 124 L Chloride 83 L 84 L Creatinine Glucose 300 H 485 H* Hemoglobin A1c 13.4 H Magnesium 1.5 L Alkaline Phosphatase 129 H Urine Glucose (UA) Ur Leukocyte Esterase Urine WBC Urine Bacteria Meds: Medications Acetaminophen (Tylenol) 650 mg PO Q6HP PRN; Protocol PRN Reason: Per Pain Protocol/Fever > 101 Hydrocodone Bitart/Acetaminophen ([place] 5/325mg) 1 tab PO QID REPLACED BY [facility]; Protocol Last Admin: 10/27/19 09:09 Dose: 1 tab Documented by: Albuterol Sulfate (Ventolin) 2 puff INH Q4H REPLACED BY [facility] Last Admin: 10/27/19 10:25 Dose: 2 puff Documented by: Aspirin (Aspirin) 81 mg PO DAILY REPLACED BY [facility] Last Admin: 10/27/19 09:10 Dose: 81 mg Documented by: Dextrose (Dextrose 50%) 0 ml IV UD PRN PRN Reason: Hypoglycemia Diagnostic Test (Pha) (Accu-Chek) 1 each FS ACHS REPLACED BY [facility] Last Admin: 10/27/19 11:01 Dose: 1 each Documented by: Docusate Sodium (Colace) 100 mg PO BID REPLACED BY [facility] Last Admin: 10/27/19 09:23 Dose: 100 mg Documented by: Enoxaparin Sodium (Lovenox) 40 mg SQ DAILY REPLACED BY [facility] Famotidine (Pepcid) 20 mg PO BID REPLACED BY [facility] Last Admin: 10/27/19 09:24 Dose: 20 mg Documented by: Furosemide (Lasix) 40 mg IV Q8 REPLACED BY [facility] Last Admin: 10/27/19 07:43 Dose: Not Given Documented by: Gabapentin (Neurontin) 100 mg PO TID REPLACED BY [facility] Last Admin: 10/27/19 09:23 Dose: 100 mg Documented by: Glucose (Insta-Glucose) 15 gm PO PRN PRN PRN Reason: Hypoglycemia Magnesium Sulfate (Magnesium Sulfate) 2 gm in 50 mls @ 25 mls/hr IV ONCE ONE Stop: 10/27/19 11:59 Last Infusion: 10/27/19 10:20 Dose: Infused Documented by: Insulin Glargine (Lantus) 20 unit SQ DAILY REPLACED BY [facility] Last Admin: 10/27/19 09:01 Dose: 20 units Documented by: Insulin Human Lispro (Humalog) 0 unit SQ ACHS REPLACED BY [facility]; Protocol Last Admin: 10/27/19 07:32 Dose: 2 units Documented by: Lactulose (Cephulac) 10 gm PO DAILYP PRN PRN Reason: Constipation Lorazepam (Ativan) 1 mg PO BIDP PRN PRN Reason: Anxiety Magnesium Oxide (Magnesium Oxide) 400 mg PO BID REPLACED BY [facility] Last Admin: 10/27/19 09:11 Dose: 400 mg Documented by: Nicotine (Nicoderm) 21 mg TOPICAL DAILY@1000 REPLACED BY [facility] Last Admin: 10/27/19 10:56 Dose: 21 mg Documented by: Ondansetron HCl (Zofran) 4 mg IV Q4HP PRN; Protocol PRN Reason: Nausea And Vomiting Mometasone [Asmanex Hfa] 100 Mcg/Actuation Inhaler 1 dose INH BID REPLACED BY [facility] Last Admin: 10/27/19 10:56 Dose: 1 dose Documented by: Potassium Chloride (Kdur) 20 meq PO TIDCC REPLACED BY [facility] Last Admin: 10/27/19 09:09 Dose: 20 meq Documented by: Pyridoxine HCl (Vitamin B-6) 100 mg PO DAILY REPLACED BY [facility] Last Admin: 10/27/19 09:23 Dose: 100 mg Documented by: Senna (Senokot) 2 tab PO HSP PRN PRN Reason: Constipation Sodium Chloride (Saline Flush) 10 ml IV Q8 REPLACED BY [facility] Last Admin: 10/27/19 09:19 Dose: 10 ml Documented by: Vitamin B Complex (Vitamin B Complex) 1 cap PO DAILY REPLACED BY [facility] Last Admin: 10/27/19 09:23 Dose: 1 cap Documented by: A/P Assessment and plan (1) UTI (urinary tract infection) with pyuria: Status: Acute Comment: pt with rash to cephalosporins but says she can take pcn will start ampicillin q6 hrs (2) Congestive heart failure (CHF): Status: Acute Comment: new onset and likely due to severe hyperglycemia and concern for possible ischemia though her troponin normal. She has volume overload as opposed to d ehydration despite severe hyperglycemia and history of glucosuria lovenox for dvt prophylaxis. check echocardiogram once volume normalized. Qualifiers: Heart failure chronicity: acute Heart failure type: unspecified Qualified Code(s): I50.9 - Heart failure, unspecified (3) Noncompliance with diabetes treatment: Status: Acute Comment: pt at high risk of morbidity and due to untreated dm. recheck A1C. Pt needs to find a provider she will listen to and get treatment from. May need psychiatric treatment and counseling as well. 09/2017 was last reasonable A1C at 8.4 since 03/24/2018 has been completely out of control 11-14.9 tolerating insulin (4) Diabetes mellitus type II, uncontrolled: Status: Chronic Comment: pt counseled needs treatment. vinegar does not work for diabetes and insulin she can not be allergic to. she can be allergic to the form of insulin ie pork, beef etc but there is also human insulin. We can find one that works and symptoms of malaise can be coincidental and not as result. advance to diabetic wt loss diet Qualifiers: Glycemic state: with hyperglycemia Qualified Code(s): E11.65 - Type 2 diabetes mellitus with hyperglycemia Time Spent With Patient Time: Total time spent is greater than 50% in coordination of care (as documented) at patient's floor/unit and/or counseling patient: 40
[2019-10-27] MEDS: AMPICILLIN SODIUM 1 GM in 0.9 % SODIUM CHLORIDE 50 ML IV SCH ×2 (12:17→17:50)
[2019-10-27] MEDS: ENOXAPARIN 40 MG/0.4 ML SYRINGE SQ SCH (13:41)
--- NOTE | 2019-10-27 13:48 | XRay Report ---
INDICATION: acute respiratory failure TECHNIQUE: AP portable upright chest x-ray COMPARISON: Previous chest x-rays dated 10/26/2019 and 05/21/2019 FINDINGS: Lungs:Findings remain consistent with interstitial pulmonary edema in the right lung. This is improved since 10/26/2019 Complete opacification of the left hemithorax. There is shift of the heart and mediastinum toward the left. This is a new finding since 10/26/2019. The proximal left mainstem bronchus is air patent but mid and distal left mainstem are not visualized. Large mucous plug with secondary collapse of the left lung is possible. CT scan or bronchoscopy recommended. Heart, vascular:Heart is not well evaluated on present examination due to complete opacification of the left hemithorax Mediastinum, naila:No mediastinal widening. No hilar mass Pleura:Probable right pleural effusion. Bilateral effusions were suspected on prior examination Skeletal:Negative. IMPRESSION: 1. Complete opacification of the left hemithorax. There is shift of the heart and mediastinum toward the left 2. Findings are probably secondary to occluded left main stem bronchus and mucous plugging is suspected 3. Interstitial infiltrates in the right lung are consistent with interstitial edema. Appearance is improved Interpreted and Authenticated by: Farhat Dominguez 10/27/19
[2019-10-27] MEDS ORDERED: PROPOFOL 1,000 MG in PREMIX 1 BAG IV SCH (14:00)
[2019-10-27] MEDS ORDERED: fentaNYL 2,500 MCG in 0.9 % SODIUM CHLORIDE 200 ML IV SCH (14:00)
[2019-10-27] MEDS: 0.9 % SODIUM CHLORIDE 250 ML IV SCH (14:50)
--- NOTE | 2019-10-27 15:36 | XRay Report ---
INDICATION: intubation TECHNIQUE: AP portable chest x-ray COMPARISON: Previous examination dated 10/27/2019, 10/26/2019 FINDINGS:Status post intubation. Endotracheal tube tip is 3 cm above the nithya. There is an esophagogastric tube in the stomach. Lungs:Partial reexpansion of the left lung. There is persistent density in left retrocardiac region consistent with left lower lobe volume loss. There is blunting of the left costophrenic angle consistent with small left effusion Right lung remains unchanged. There is probable interstitial pulmonary edema and a small right pleural effusion. There is right basilar thigh and loss or infiltrate. Heart, vascular:Heart size remains unchanged. Pulmonary vascularity is mildly prominent and there is probable interstitial pulmonary edema. This is improved since 10/26/2019 Mediastinum, naila:No mediastinal widening. No hilar mass Pleura:Findings consistent with bilateral pleural effusions Skeletal:Negative. IMPRESSION: 1. Status post intubation. Endotracheal tube tip is 3 cm above the nithya 2. Partial reexpansion of the left lung. Residual left lower lobe volume loss. Interpreted and Authenticated by: Farhat Dominguez 10/27/19
[2019-10-27] MEDS ORDERED: MIDAZOLAM 5 MG/5 ML VIAL IV ONE (15:47)
[2019-10-27] MEDS ORDERED: ROCURONIUM 10 MG/ML ML IV ONE (15:47)
--- NOTE | 2019-10-27 15:51 | Procedure Note ---
PROC Intubation Time out performed: Yes Date of Procedure: 10/27/19 Sedative: Versed (4 mg) Mg given: 4 Paralytic: Rocuronium (15 mg) ETT: ETCO2 and BBS Laryngoscope: 3 Assist device used: glide (3 mac glide blade) Vocal Cord View: 2 (a) ET tube size: 8 ET tube uncuffed: Yes Tube secured depth (cm): 21 Tube secured location: teeth Tube placement confirmation: visualized tube passing through cords, equal breath sounds bilaterally and confirmation by capnometry # of Attempts: 1 Patient tolerated procedure: well and no complications Intubation complications: none Additional comments: left lung atelectasis resolved on post intubation film
--- NOTE | 2019-10-27 16:06 | Internal Med Progress Note ---
SUBJECTIVE Subjective Patient information: Note initiated : 10/27/19 at 3:56 pm Service Date, if different from initiated Date: [] Patient: Geraldine Sanches 69 y/o F admitted on 10/26/19 for weakness x1 week. Chief Complaint: difficulty breathing 69 yo WF with insulin overnight and bs 250 on lab and then 150. Pt had hypoxemia and started on bipap but ABG still showing pO2 60 and pCO2 50. Pt xray shows left lung white out and shift to left. Looks like atelectasis and internal plug. Pt was moved to ICU for intubation Constitutional Vitals: Vital Signs Temp Pulse Resp BP Pulse Ox 98.0 F 102 H 18 99/57 99 10/27/19 15:46 10/27/19 15:46 10/27/19 15:46 10/27/19 15:46 10/27/19 15:46 Period Temp Pulse Resp BP Sys/Reynolds Pulse Ox Last 24 Hr 97.3 F-98.0 F 62-115 14-37 79-152/53-106 83-99 Intake and Output 10/27/19 10/27/19 10/27/19 05:59 13:59 21:59 Intake Total 360 340 Output Total 521 1851 250 Balance -161 -1511 -250 Weight 82.282 kg CV RRR Lungs Left lung decreased breath sounds ABd positive bowels tones soft NTND Calves no tenderness 2+ edema Intake & Output: Intake & Output 10/27/19 10/27/19 10/27/19 05:59 13:59 21:59 Intake Total 360 340 Output Total 521 1851 250 Balance -161 -1511 -250 Weight 82.282 kg Intake: IV 100 Ampicillin 1 gm In Sodium 50 Chloride 0.9% 50 ml @ 100 mls/ hr IV Q6H [facility] Rx#:[id number] Oral 360 240 Output: Urine Catheter Amount 1600 250 Void Amount 520 250 # of times incontinent of urine 1 1 Other: Percent of Meal Consumed 100% Nourishment/Supplement name Egg salad cup/crackers Urine Appearance Clear Clear Clear Uretheral ([place]) Clear Urine Color Bright Yellow Bright Yellow Pale Uretheral ([place]) Bright Yellow Urine Odor Strong OBJ DATA Labs CBC & Chem 7: 10/27/19 04:40 10/27/19 04:41 Labs: Abnormal Lab Results 10/27/19 10/27/1910/26/20 04:41 04:40 01:42 WBC 14.4 H RBC MPV 10.5 H Lymph % (Auto) 12.5 L Gran # 11.15 H Karnes # (Auto) 1.19 H Sodium 129 L Chloride 87 L Creatinine 0.5 L Glucose 247 H Hemoglobin A1c Magnesium Alkaline Phosphatase Urine Glucose (UA) 50 A Ur Leukocyte Esterase 500 A Urine WBC 112 H Urine Bacteria Many A 10/26/19 10/26/19 10/26/19 22:02 17:52 17:52 WBC 13.9 H RBC 5.40 H MPV 10.5 H Lymph % (Auto) 14.1 L Gran # 10.73 H Karnes # (Auto) 1.09 H Sodium 124 L 124 L Chloride 83 L 84 L Creatinine Glucose 300 H 485 H* Hemoglobin A1c 13.4 H Magnesium 1.5 L Alkaline Phosphatase 129 H Urine Glucose (UA) Ur Leukocyte Esterase Urine WBC Urine Bacteria Meds: Medications Acetaminophen (Tylenol) 650 mg PO Q6HP PRN; Protocol PRN Reason: Per Pain Protocol/Fever > 101 Hydrocodone Bitart/Acetaminophen ([place] 5/325mg) 1 tab PO QID [facility]; Protocol Last Admin: 10/27/19 13:21 Dose: 1 tab Documented by: Albuterol Sulfate (Ventolin) 2 puff INH Q4H [facility] Last Admin: 10/27/19 13:12 Dose: 2 puff Documented by: Aspirin (Aspirin) 81 mg PO DAILY [facility] Last Admin: 10/27/19 09:10 Dose: 81 mg Documented by: Dextrose (Dextrose 50%) 0 ml IV UD PRN PRN Reason: Hypoglycemia Diagnostic Test (Pha) (Accu-Chek) 1 each FS ACHS [facility] Last Admin: 10/27/19 11:01 Dose: 1 each Documented by: Docusate Sodium (Colace) 100 mg PO BID [facility] Last Admin: 10/27/19 09:23 Dose: 100 mg Documented by: Enoxaparin Sodium (Lovenox) 40 mg SQ DAILY [facility] Last Admin: 10/27/19 13:41 Dose: 40 mg Documented by: Famotidine (Pepcid) 20 mg PO BID [facility] Last Admin: 10/27/19 09:24 Dose: 20 mg Documented by: Furosemide (Lasix) 40 mg IV Q8 [facility] Last Admin: 10/27/19 13:23 Dose: 40 mg Documented by: Gabapentin (Neurontin) 100 mg PO TID [facility] Last Admin: 10/27/19 15:51 Dose: Not Given Documented by: Glucose (Insta-Glucose) 15 gm PO PRN PRN PRN Reason: Hypoglycemia Ampicillin Sodium 1 gm/ Sodium (Chloride) 50 mls @ 100 mls/hr IV Q6H [facility]; Protocol Last Infusion: 10/27/19 12:50 Dose: Infused Documented by: Propofol 1,000 mg/ Premix 100 mls @ 2.468 mls/hr IV .Q24H [facility]; Protocol Last Admin: 10/27/19 14:50 Dose: 5 mcg/kg/min, 2.468 mls/hr Documented by: Fentanyl 2,500 mcg/ Sodium (Chloride) 250 mls @ 2.5 mls/hr IV Q24H [facility]; Protocol Last Admin: 10/27/19 15:49 Dose: 25 mcg/hr, 2.5 mls/hr Documented by: Insulin Glargine (Lantus) 20 unit SQ DAILY [facility] Last Admin: 10/27/19 09:01 Dose: 20 units Documented by: Insulin Human Lispro (Humalog) 0 unit SQ ACHS [facility]; Protocol Last Admin: 10/27/19 12:01 Dose: 6 units Documented by: Lactulose (Cephulac) 10 gm PO DAILYP PRN PRN Reason: Constipation Lorazepam (Ativan) 1 mg PO BIDP PRN PRN Reason: Anxiety Magnesium Oxide (Magnesium Oxide) 400 mg PO BID [facility] Last Admin: 10/27/19 09:11 Dose: 400 mg Documented by: Nicotine (Nicoderm) 21 mg TOPICAL DAILY@1000 [facility] Last Admin: 10/27/19 10:56 Dose: 21 mg Documented by: Ondansetron HCl (Zofran) 4 mg IV Q4HP PRN; Protocol PRN Reason: Nausea And Vomiting Mometasone [Asmanex Hfa] 100 Mcg/Actuation Inhaler 1 dose INH BID [facility] Last Admin: 10/27/19 10:56 Dose: 1 dose Documented by: Potassium Chloride (Kdur) 20 meq PO TIDCC [facility] Last Admin: 10/27/19 12:13 Dose: 20 meq Documented by: Pyridoxine HCl (Vitamin B-6) 100 mg PO DAILY [facility] Last Admin: 10/27/19 09:23 Dose: 100 mg Documented by: Kayy (Senokot) 2 tab PO HSP PRN PRN Reason: Constipation Sodium Chloride (Saline Flush) 10 ml IV Q8 [facility] Last Admin: 10/27/19 13:23 Dose: 10 ml Documented by: Vitamin B Complex (Vitamin B Complex) 1 cap PO DAILY [facility] Last Admin: 10/27/19 09:23 Dose: 1 cap Documented by: A/P Assessment and plan (1) UTI (urinary tract infection) with pyuria: Status: Acute Comment: pt with rash to cephalosporins but says she can take pcn will start ampicillin q6 hrs (2) Noncompliance with diabetes treatment: Status: Acute Comment: pt at high risk of morbidity and due to untreated dm. recheck A1C. Pt needs to find a provider she will listen to and get treatment from. May need psychiatric treatment and counseling as well. 09/2017 was last reasonable A1C at 8.4 since 03/24/2018 has been completely out of control 11-14.9 tolerating insulin (3) Congestive heart failure (CHF): Status: Acute Comment: new onset and likely due to severe hyperglycemia and concern for possible ischemia though her troponin normal. She has volume overload as opposed to dehydration despite severe hyperglycemia and history of glucosuria lovenox for dvt prophylaxis. check echocardiogram once volume normalized. Qualifiers: Heart failure chronicity: acute Heart failure type: unspecified Qualified Code(s): I50.9 - Heart failure, unspecified (4) Atelectasis of left lung: Status: Acute Comment: intubated and ETT good position. turned over to Dr. Wilson Time Spent With Patient Time: Total time spent is greater than 50% in coordination of care (as documented) at patient's floor/unit and/or counseling patient:
[2019-10-27] MEDS ORDERED: NOREPINEPHRINE BITARTRATE 4 MG/4 ML VIAL IV ONE (23:45)
[2019-10-27] MEDS ORDERED: NOREPINEPHRINE BITARTRATE 16 MG in 0.9 % SODIUM CHLORIDE 234 ML IV SCH (23:45)
[2019-10-27] MEDS ORDERED: NOREPINEPHRINE BITARTRATE 8 MG in 0.9 % SODIUM CHLORIDE 242 ML IV SCH (23:45)
[2019-10-27] MEDS ORDERED: 0.9 % SODIUM CHLORIDE 250 ML IV SCH (23:45)
[2019-10-28] MEDS: ALBUTEROL SULFATE 200 PUFF INHALER INH SCH ×3 (00:35→06:25)
[2019-10-28] MEDS: 0.9 % SODIUM CHLORIDE 250 ML IV SCH ×2 (03:26→06:11)
[2019-10-28 04:05] LABS: Basophils # (Auto) 0.07 K/mcL (0.00-0.30); Basophils % (Auto) 0.4 % (0.0-2.0); Eosinophils # (Auto) 0.07 K/mcL (0.00-0.70); Eosinophils % (Auto) 0.4 % (0.0-7.0); Granulocytes % (Auto) 81.9 % (38.0-78.0); Hematocrit 46.3 % (34.1-44.9); Lymphocytes # (Auto) 1.95 K/mcL (1.50-4.80); Lymphocytes % (Auto) 10.9 % (15.5-49.0); Mean Cell Volume 82.1 fL (80.0-100.0); Mean Corpuscular HGB Conc 32.4 g/dL (31.0-36.0); Mean Platelet Volume 10.1 fL (7.4-10.4); Monocytes # (Auto) 1.14 K/mcL (0.10-0.90); Monocytes % (Auto) 6.4 % (1.0-12.0); Platelet Count 407 K/mcL (140-440); RBC 5.64 M/mcL (3.59-5.38); Red Cell Distribution Width 13.5 % (11.5-14.5); WBC 17.9 K/mcL (4.50-11.00)
[2019-10-28 04:31] LABS: ALT/SGPT 22 U/l (0-40); AST/SGOT 24 U/l (0-37); Albumin 2.8 gm/dL (3.2-5.2); Albumin/Globulin Ratio 0.9 (1.0-2.3); Alkaline Phosphatase 109 U/L (39-117); Bilirubin,Direct 0.2 mg/dL (0.0-0.3); Bilirubin,Total 0.6 mg/dL (0.0-1.0); Blood Urea Nitrogen 14 mg/dl (8-23); Calcium 9.2 mg/dl (8.6-10.4); Carbon Dioxide 30 mmol/L (22-30); Globulin 3.2 gm/dL (2.2-3.7); Glomerular Filtration Rate 92; Glucose 153 mg/dL (70-105); Lactate Dehydrogenase 205 U/L (94-250); Phosphorous 4.5 mg/dL (2.7-4.5); Triglycerides 87 mg/dl (<150); Uric Acid 5.1 mg/dL (2.5-8.0)
[2019-10-28 04:35] LABS: Chloride 89 mmol/L (96-108)
[2019-10-28] MEDS: FUROSEMIDE 40 MG/4 ML VIAL IV SCH (05:45)
[2019-10-28] MEDS: AMPICILLIN SODIUM 1 GM in 0.9 % SODIUM CHLORIDE 50 ML IV SCH ×2 (05:46)
[2019-10-28] MEDS: INSULIN LISPRO 1 UNIT/0.01 ML UNIT SQ SCH ×2 (05:46)
[2019-10-28] MEDS: 0.9 % SODIUM CHLORIDE 10 ML SYRINGE IV SCH (05:48)
--- NOTE | 2019-10-28 06:51 | XRay Report ---
INDICATION: CHF, respiratory failure TECHNIQUE: AP portable semiupright chest x-ray COMPARISON: Previous chest x-rays dated 10/27/2019, 10/26/2019, 05/21/2019 FINDINGS:Esophagogastric tube with its tip off the plane of this film and within the stomach. Endotracheal tube 3 cm above the nithya, unchanged Lungs:Bilateral pulmonary parenchymal infiltrates consistent with pulmonary edema and congestive heart failure. There are bilateral, bibasilar infiltrates which may be secondary to pulmonary edema or pneumonia. Heart, vascular:No significant cardiomegaly. Vascularity remains prominent and findings remain consistent with congestive heart failure Mediastinum, naila:No mediastinal widening. No hilar mass Pleura:Findings consistent with bilateral pleural effusions Skeletal:Negative. IMPRESSION: 1. Bilateral pulmonary parenchymal infiltrates most consistent with pulmonary edema 2. No change in positions of endotracheal tube or esophagogastric tube. Interpreted and Authenticated by: Farhat Dominguez 10/28/19
[2019-10-28 08:29] LABS: proBNP 425.2 pg/ml (0-125)
[2019-10-28] MEDS ORDERED: DOCUSATE SODIUM 50 MG/5 ML ORAL.SOL PO SCH ×2 (09:00→21:00)
[2019-10-28] MEDS ORDERED: CHLORHEXIDINE GLUCONATE 1 ML ORAL.SOL SWABMOUTH SCH ×2 (09:00→21:00)
[2019-10-28] MEDS: POTASSIUM CHLORIDE 20 MEQ TABLET PO SCH (09:13)
[2019-10-28] MEDS: ENOXAPARIN 40 MG/0.4 ML SYRINGE SQ SCH (09:13)
[2019-10-28] MEDS: INSULIN GLARGINE, HUMAN 1 UNIT/0.01 ML SQ SCH (09:13)
[2019-10-28] MEDS: MAGNESIUM OXIDE 400 MG TABLET PO SCH (09:13)
[2019-10-28] MEDS: ASPIRIN 81 MG TAB.CHEW PO SCH (09:13)
[2019-10-28] MEDS: VITAMIN B COMPLEX 1 CAPSULE PO SCH (09:18)
[2019-10-28] MEDS: FAMOTIDINE 20 MG TABLET PO SCH (09:18)
[2019-10-28] MEDS: PYRIDOXINE 100 MG TABLET PO SCH (09:18)
[2019-10-28] MEDS ORDERED: LORazepam 1 MG TABLET PO PRN (09:44)
[2019-10-28] MEDS ORDERED: DEXTROSE 31 GM ORAL.SUSP PO PRN (09:44)
[2019-10-28] MEDS ORDERED: ONDANSETRON 4 MG/2 ML VIAL IV PRN (09:44)
[2019-10-28] MEDS ORDERED: ACETAMINOPHEN 325 MG TABLET PO PRN (09:44)
[2019-10-28] MEDS ORDERED: ROCURONIUM 10 MG/ML ML IV ONE (09:44)
[2019-10-28] MEDS ORDERED: DEXTROSE 50% 50 ML VIAL IV PRN (09:44)
[2019-10-28] MEDS ORDERED: SENNOSIDES 1 TABLET PO PRN (09:44)
[2019-10-28] MEDS ORDERED: 0.9 % SODIUM CHLORIDE 250 ML IV SCH ×3 (09:44)
[2019-10-28] MEDS ORDERED: LACTULOSE 20 GM/30 ML ORAL.SOL PO PRN (09:44)
[2019-10-28] MEDS ORDERED: PROPOFOL 1,000 MG in PREMIX 1 BAG IV SCH (09:44)
[2019-10-28] MEDS ORDERED: MIDAZOLAM 5 MG/5 ML VIAL IV ONE (09:44)
[2019-10-28] MEDS ORDERED: NICOTINE 21 MG PATCH TOPICAL SCH (10:00)
--- NOTE | 2019-10-28 10:45 | Transfer Summary ---
Discharge Provider Provider Patient information: Note initiated : 10/28/19 at 10:41 am Service Date, if different from initiated Date: [] Patient: Geraldine Sanches 69 y/o F admitted on 10/26/19 for weakness x1 week. Chief Complaint: Weakness Date of admission: 10/26/19 22:14 Discharge date: 10/28/19 Primary care physician: Negrito Villa Consults: 10/26/19 Consult to Physician [CONS] Stat Comment: Consulting Provider: Andres Johnson Reason For Exam: Physician to Consult Discharge Meds Discharge Medications Home Medications aspirin 81 mg tablet,delayed release 81 mg PO QDAY 12/07/18 [History Confirmed 10/26/19 Last Taken 08/05/19] albuterol sulfate 90 mcg/actuation aerosol inhaler 2 puff INHALATION Q4H #36 g 10/22/19 [Rx Confirmed 10/26/19 Last Taken 10/26/19 09:00] B Complex-Vitamin B12 1 tab PO QAM 10/26/19 [History Confirmed 10/26/19 Last Taken Unknown] Vitamin B-6 1 tab PO QAM 10/26/19 [History Confirmed 10/26/19 Last Taken 10/25/19 09:00] docusate sodium 100 mg PO QDAY PRN 10/26/19 [History Confirmed 10/26/19 Last T aken 10/26/19 09:00] hydrocodone-acetaminophen 1 tab PO QID 10/26/19 [History Confirmed 10/26/19 Last Taken 10/26/19 12:00] COURSE Hospital Course Hospital course: 10/25, Presentation: Ms. Sanches is a 69 year old F noncompliant has had diabetes not treated and A1c 11. in april and 14 in past. BS running 485 today. She has reported side effects with pills she has tried. She says the insulin she took made her feel worse and worse over days. She sees Negrito Villa q 2-3 months but pt has declined diabetic medication and declined [facility]. She is taking some vinegar product and says one time it lowered her blood sugar to 180. Pt reports never having heart failure before but last night had marked increase in leg swelling and subsequent difficulty breathing. Came to EMD. No fevers no chills no cough no sick contacts. no anosmia or loss of taste. She and nasal congestion recently treated with erythromycin. Now she chest congestion. Xray show florid CHF with bilat pleural effusions. Pt smokes 1ppd. 10/26: The patient required BiPAP therapy during the day, increasing FiO2 needs to 100%. At that point repeat chest radiograph showed a white out of the left lung field. Patient was intubated at 14:45. She continued to require 100% FiO2. Post intubation film showed improvement of left lung aeration with a pulmonary edema pattern. Initially is felt this represented a mucous plug, though her oxygenation did not improve with improved aeration. She was continued on diuresis, adjustments were made to PEEP without significant change in saturations. She is maintaining saturations in the low 90% range, though did desat when positioned with her right side down. Blood glucoses were controlled with Lantus and sliding scale insulin, which she tolerated without side effect. 10/27: Patient essentially unchanged overnight. Still requiring 100% FiO2, peak airway pressures in the low 20 range. PEEP returned to 8, when it was increased to 12 overnight, caused hypotension necessitating low-dose norepinephrine. Discussed the case with Dr. Joyner, bacon de rinder at [place], she will accept the patient in transfer for higher level of care. On the day of discharge, the patient's procalcitonin was 0.25. pro-BNP was 435. White count had increased to 17,000. Chest x-ray continued to show bilateral interstitial infiltrates consistent with edema, though there may be some consolidation developing in the bases. She is remained afebrile has not had purulent secretions via suctioning through the endotracheal tube. SARS-CoV-2 PCR was sent to [facility], and is pending at the time of transfer. Patient had been started on ampicillin for evidence of acute cystitis at admission. Blood cultures were obtained, this was changed to Zosyn at the time of transfer. Consideration for VTE was entertained, though the patient was not felt stable enough to transfer to the CT scan for CT angiography. Of note, the patient had a CT scan back in July which showed a right middle mass. She had not followed up for biopsy. Discharge diagnosis: Acute hypoxic respiratory failure Secondary discharge diagnosis: Type 2 diabetes mellitus, uncontrolled Right middle lobe spiculated mass (noted on CT 07/2019) Acute cystitis, urine cultures pending Presumptive congestive heart failure, limited echo results pending (being read by cardiology at [place]) Reason for admission: Dyspnea, declining functional status Procedures: Endotracheal intubation/mechanical ventilation Central venous catheter placement Pertinent studies/significant findings: ABG from 10/27: pH 7.49, PCO2 47, PO2 66 on 100% FiO2 Chest x-ray from 10/27: IMPRESSION: 1. Bilateral pulmonary parenchymal infiltrates most consistent with pulmonary edema 2. No change in positions of endotracheal tube or esophagogastric tube. CT Chest from 07/30/2019 ([facility] in [place]) Mass in the right middle lobe (3.0 x 1.8 x 2.2 cm) suspicious for malignancy with adenopathy to the mediastinum. The lung mass may be amenable to percutaneous CT-guided biopsy. Complications: None Time Spent with Patient Time attestation: Critical care time on day of transfer: 40 min EXAM Constitutional Vitals: Temp Pulse Resp BP Pulse Ox 97.9 F 90 24 H 99/52 94 10/28/19 08:01 10/28/19 00:45 10/28/19 06:10 10/28/19 10:31 10/28/19 10:31 General: Intubated, awake, able to nod and follow commands Chest: Coarse bilateral breath sounds, more so on the left than the right, aeration in both lungs present Cardiovascular: Regular, no murmur appreciated, though lung sounds do obscure heart tones Abdomen: Soft, nontender Extremities: In compression hose, trace edema Neuro: Intubated, partially sedated but able to follow commands and consent for transfer and treatment Discharge Data Data Completed and Pending Labs on day of discharge: Labs from last 24 hours 10/28/19 10/28/19 10/28/19 07:39 03:15 03:15 WBC RBC Hgb Hct MCV MCH MCHC RDW Plt Count MPV Gran % Lymph % (Auto) Owen % (Auto) Eos % (Auto) Baso % (Auto) Gran # Lymph # (Auto) Owen # (Auto) Eos # (Auto) Baso # (Auto) Sodium Potassium Chloride Carbon Dioxide Anion Gap BUN Creatinine GFR Calculation Glucose Uric Acid Calcium Phosphorus Magnesium 1.7 Total Bilirubin Direct Bilirubin GGT AST ALT Alkaline Phosphatase Lactate Dehydrogenase NT-Pro-B Natriuret Pep 425.2 H Total Protein Albumin Globulin Albumin/Globulin Ratio Triglycerides Procalcitonin 0.25 10/28/19 10/28/19 03:15 03:15 WBC 17.9 H RBC 5.64 H Hgb 15.0 Hct 46.3 H MCV 82.1 MCH 26.6 MCHC 32.4 RDW 13.5 Plt Count 407 MPV 10.1 Gran % 81.9 H Lymph % (Auto) 10.9 L Owen % (Auto) 6.4 Eos % (Auto) 0.4 Baso % (Auto) 0.4 Gran # 14.62 H Lymph # (Auto) 1.95 Owen # (Auto) 1.14 H Eos # (Auto) 0.07 Baso # (Auto) 0.07 Sodium 133 Potassium 4.3 Chloride 89 L Carbon Dioxide 30 Anion Gap 14.0 BUN 14 Creatinine 0.6 GFR Calculation 92 Glucose 153 H Uric Acid 5.1 Calcium 9.2 Phosphorus 4.5 Magnesium 1.7 Total Bilirubin 0.6 Direct Bilirubin 0.2 GGT 64 H AST 24 ALT 22 Alkaline Phosphatase 109 Lactate Dehydrogenase 205 NT-Pro-B Natriuret Pep Total Protein 6.0 Albumin 2.8 L Globulin 3.2 Albumin/Globulin Ratio 0.9 L Triglycerides 87 Procalcitonin Discharge Plan Patient/Caregiver Discharge Instructions Activity: as instructed Diet: NPO Prescriptions: No Action mometasone [Asmanex HFA] 100 mcg/actuation HFA aerosol inhaler 1 inh inhalation BID RF: 0 albuterol sulfate [ProAir HFA] 90 mcg/actuation HFA aerosol inhaler 2 puff INHALATION Q4H Qty: 36 RF: 2 aspirin [Adult Low Dose Aspirin] 81 mg tablet,delayed release (DR/EC) 81 mg PO QDAY RF: 0 docusate sodium 100 mg Capsule 100 mg PO QDAY PRN (Reason: Constipation) RF: 0 hydrocodone-acetaminophen 5-325 mg tablet 1 tab PO QID RF: 0 B Complex-Vitamin B12 tablet 1 tab PO QAM RF: 0 Vitamin B-6 1 tab PO QAM RF: 0 Follow Up Plan Follow up with: Negrito Villa ARNP [Primary Care Provider] - Patient Disposition: [facility] Prognosis: Critical Rehab Potential: Critical Overall status at discharge: patient is not back to baseline Discharge Orders: Discharge Order (Routine); Ordered 10/28/19 Ordered By: Gaby Wilson Discharge Comment: Transfer to [facility]
[2019-10-28] MEDS ORDERED: 0.9 % SODIUM CHLORIDE 10 ML SYRINGE IV PRN (10:54)
[2019-10-28] MEDS ORDERED: MIDAZOLAM 2 MG/2 ML VIAL IV ONE (11:00)
[2019-10-28] MEDS ORDERED: GLYCOPYRROLATE 0.2 MG/ML VIAL IV ONE (11:00)
[2019-10-28] MEDS ORDERED: KETAMINE 100 MG/ML ML IV ONE (11:00)
--- NOTE | 2019-10-28 11:43 | XRay Report ---
INDICATION: Central Line Placement TECHNIQUE: AP portable semiupright chest x-ray COMPARISON: Previous examinations dated 10/28/2019, 10/27/2019, 10/26/2019 FINDINGS:Interval placement of a right central venous catheter. Catheter tip is in the superior vena cava. There is no pneumothorax. No change in endotracheal tube position. There is an esophagogastric tube with its tip off the plane of this image Lungs:Bilateral pulmonary parenchymal infiltrates with bibasilar predominance. Appearance is most consistent with congestive heart failure and diffuse pulmonary edema. Findings are worse since 10/27/2019 Heart, vascular:There is cardiomegaly. Vascularity is prominent. Appearance is consistent with congestive heart failure. Mediastinum, naila:No mediastinal widening. No hilar mass Pleura:Bilateral pleural effusions are suspected, right larger than left Skeletal:Negative. IMPRESSION: 1. Right central venous catheter with its tip in superior vena cava. There is no pneumothorax 2. Radiographic findings consistent with congestive heart failure Interpreted and Authenticated by: Farhat Dominguez 10/28/19
[2019-10-28] MEDS: MOMETASONE INH SCH (12:00)
[2019-10-28] MEDS ORDERED: INSULIN LISPRO 1 UNIT/0.01 ML UNIT SQ SCH (12:00)
[2019-10-28] MEDS ORDERED: POTASSIUM CHLORIDE 20 MEQ TABLET PO SCH (12:00)
[2019-10-28] MEDS ORDERED: PIPERACILLIN SODIUM/TAZOBACTAM 3.375 GM in DEXTROSE 5% IN WATER 50 ML IV SCH ×2 (12:00)
[2019-10-28] MEDS ORDERED: ALBUTEROL SULFATE 200 PUFF INHALER INH SCH (12:15)
--- NOTE | 2019-10-28 13:37 | Procedure Note ---
Procedures - Central Line Placement Right IJ Consent obtained: written consent Date of Procedure: 10/28/19 Time out performed: Yes Patient placed on monitor/pulse ox: Yes MD prep: mask, sterile gown, sterile gloves, cap, other (PAPR) Central line prep: 2% Chlorhexidine scrub, large sterile drapes applied, proper hand hygiene Amount of anesthesia used (mls): 2.4 (Versed 2mg, Ketamine 40mg) Ultrasound used for placement: Yes Central line lumen inserted: quad, 16 cm Post procedure: sutured in place, good blood return, all ports aspirated, flushed, capped, sterile dressing applied Post procedure x-ray: tip of catheter in good position, no pneumothorax seen Patient tolerated procedure: well
[2019-10-28] MEDS ORDERED: fentaNYL 2,500 MCG in 0.9 % SODIUM CHLORIDE 200 ML IV SCH (14:00)
[2019-10-28] MEDS ORDERED: FUROSEMIDE 40 MG/4 ML VIAL IV SCH (14:00)
[2019-10-28] MEDS ORDERED: 0.9 % SODIUM CHLORIDE 10 ML SYRINGE IV SCH ×2 (14:00→21:00)
[2019-10-28] MEDS ORDERED: NOREPINEPHRINE BITARTRATE 16 MG in 0.9 % SODIUM CHLORIDE 234 ML IV SCH (18:00)
[2019-10-28] MEDS ORDERED: FAMOTIDINE 20 MG TABLET PO SCH (21:00)
[2019-10-28] MEDS ORDERED: MOMETASONE INH SCH (21:00)
[2019-10-28] MEDS ORDERED: MAGNESIUM OXIDE 400 MG TABLET PO SCH (21:00)
[2019-10-29] MEDS ORDERED: VITAMIN B COMPLEX 1 CAPSULE PO SCH (09:00)
[2019-10-29] MEDS ORDERED: ENOXAPARIN 40 MG/0.4 ML SYRINGE SQ SCH (09:00)
[2019-10-29] MEDS ORDERED: PYRIDOXINE 100 MG TABLET PO SCH (09:00)
[2019-10-29] MEDS ORDERED: ASPIRIN 81 MG TAB.CHEW PO SCH (09:00)
[2019-10-29] MEDS ORDERED: INSULIN GLARGINE, HUMAN 1 UNIT/0.01 ML SQ SCH (09:00)
== END 2019-10-28 12:40 | disposition short-term general hospital (02) | DRG 208 ==
LOC: ED 17:21 → ICU 22:14
PROVIDERS: ADMIT Internal Medicine; ATTEND Internal Medicine